=== PATIENT | female | born 1975 | race Caucasian/White ===

== ENCOUNTER 2020-06-09 09:08 | Outpatient (CLI) | payer OTHER, SELFPAY ==
--- NOTE | ~2020-06-09 | US_ITS ---
EXAMINATION: US abdomen complete DATE: 06/09/2020 10:16 INDICATION: Pancytopenia TECHNIQUE: Multiple grayscale and Doppler ultrasound images of the abdomen were obtained. COMPARISON: None available FINDINGS: The head and and body of the pancreas are normal. The pancreatic tail is obscured by bowel gas. The liver is normal with normal echogenicity and echotexture. No surface nodularity. Normal hepa topetal flow in the main portal vein. A stone is present in the nondistended gallbladder. There is no gallbladder wall thickening or pericholecystic fluid. The normal common bile duct measures 4 mm. The re was no sonographic Sood sign. The visualized portions of the aorta and inferior vena cava are no rmal. The right kidney measures 10.7 x 4.6 x 4.2 cm. The left kidney measures 10.4 x 4.5 x 5.3 cm. The kidn eys demonstrate normal parenchymal echogenicity. There is no hydronephrosis. The spleen is normal in appearance and measures 10.5 cm. IMPRESSION: 1. No sonographic correlate for the patient's symptoms. Reviewed, dictated and finalized at location A.
[2020-06-09 10:40] LABS: Basophils Percent Auto 1.3 % (0.2-1.2); Eosinophils Percent Auto 0.3 % (0-4.4); Hematocrit 32.2 % (37.0-47.0); Hemoglobin 10.4 g/dL (12.0-15.0); Immature Granulocyte Absolute 0.02 K/mm3 (0.00-0.031); Immature Granulocyte Percent A 0.7 % (0-0.5); Immature Platelet Fraction Pct 22.2 % (0.9-11.2); Lymphocytes Absolute Auto 1.05 K/mm3 (0.9-3.2); Mean Corpuscular HGB Conc 32.3 g/dl (32-36); Mean Corpuscular Hemoglobin 33.2 pg (26-34); Mean Corpuscular Volume 102.9 fl (80-100); Monocytes Absolute Auto 0.3 K/mm3 (0.1-0.6); Monocytes Percent Auto 10.7 % (2.6-8.5); Neutrophils Absolute Auto 1.6 K/mm3 (1.3-6.7); Platelet Count Result 155 k/mm3 (150-375); Red Blood Count 3.13 M/mm3 (4.2-5.4); Red Cell Distribution Width 15.9 % (11.5-14.5)
[2020-06-09 10:42] LABS: Immature Reticulocyte Fraction 30.4 % (3.0-15.9); Reticulocyte Hemoglobin Conten 38.7 pg (28.2-35.7); Reticulocyte Percent 3.89 % (0.7-4.3); Reticulocytes Absolute 0.12 B/L (32.2-175.7)
[2020-06-09 12:39] LABS: Iron 112 ug/dL (37-170)
[2020-06-09 12:41] LABS: Alanine Aminotransferase 15 U/L (4-35); Alkaline Phosphatase 61 U/L (38-126); Anion Gap 8 mmol/L (8-16); Aspartate Amino Transferase 20 U/L (14-36); Bilirubin,Total 0.2 mg/dL (0.2-1.3); Blood Urea Nitrogen 12 mg/dL (7-17); Calcium 8.7 mg/dL (8.4-10.2); Carbon Dioxide 23 mmol/L (22-30); Chloride 106 mmol/L (98-107); Estimated Glomerular Filt Rate > 60; Glucose 99 mg/dL (65-105); Lactate Dehydrogenase 501 U/L (313-618); Potassium 4.3 mmol/L (3.4-5.0); Sodium 137 mmol/L (137-145)
[2020-06-09 12:50] LABS: Percent Iron Saturation 36 % (20-50)
[2020-06-09 13:46] LABS: Folic Acid 12.1 ng/mL (2.76->20)
== END 2020-06-09 09:09 | disposition home or self-care (01) ==
PROVIDERS: PCP Family Medicine; Visit Provider Internal Medicine Hematology & Oncology
DX: D61.818 Other pancytopenia (principal)
CPT/HCPCS: 36415; 76700; 80053; 82607; 82728; 82746; 83540; 83550; 83615; 84443; 85025; 85046; 85055; 86038

== ENCOUNTER 2020-06-21 00:45 | Outpatient (CLI) | payer OTHER, SELFPAY ==
[2020-06-21 16:40] LABS: SARS-CoV-2 RNA PCR Negative
== END 2020-06-21 00:46 | disposition home or self-care (01) ==
LOC: ANHCOVIDDT 00:45
PROVIDERS: PCP Family Medicine; Visit Provider Internal Medicine Hematology & Oncology
DX: Z01.812 Encounter for preprocedural laboratory examination (principal); Z11.59 Encounter for screening for other viral diseases
CPT/HCPCS: 87635; C9803; U0003

== ENCOUNTER 2020-06-23 03:12 | Day surgery (SDC) | payer OTHER, SELFPAY ==
[2020-06-22 11:35] VITALS: BP 120/86; PULSE 67; RESP 16; TEMP 36.6; O2SAT 99
[2020-06-22 11:58] VITALS: BMI 35.5
--- NOTE | ~2020-06-23 | BM_ITS ---
. EXAMINATION: CCL bone marrow asp w bx diag ORDER COMPLETED DATE: 06/23/2020 11:30 INDICATION: Pancytopenia TECHNIQUE: A time-out was performed to verify the patient's name, date of , and procedure to b e performed. The procedure including the risks, benefits, and alternatives was discussed with the pat ient. Risks discussed included bleeding and infection. The patient understood the risks and agreed to proceed. The skin overlying the right posterior iliac spine was prepped and draped in usual sterile fashion. Anesthetic was administered with 1% lidocaine subcutaneously. Systemic analgesia was provide d with 75 mcg fentanyl IV. An 11 gauge needle was inserted into the ilium with fluoroscopic guidance. Bone marrow was aspirated. An 8 gauge needle was then inserted into the ilium with fluoroscopic guid ance. A core bone marrow biopsy was obtained. There were no immediate complications. Fluoroscopy expo sure time was 0.1 minutes. The total number of images was 99. FINDINGS: Real-time fluoroscopy demonstrates a marker overlying the right posterior iliac spine. IMPRESSION: 1. Successful fluoro-guided bone marrow aspiration. 2. Successful fluoro-guided bone marrow core biopsy. Reviewed, dictated and finalized at location A.
[2020-06-23 09:50] LABS: Basophils Percent Auto 0.7 % (0.2-1.2); Eosinophils Percent Auto 0.3 % (0-4.4); Hematocrit 31.9 % (37.0-47.0); Hemoglobin 10.6 g/dL (12.0-15.0); Immature Granulocyte Absolute 0.01 K/mm3 (0.00-0.031); Immature Granulocyte Percent A 0.3 % (0-0.5); Immature Platelet Fraction Pct 23.4 % (0.9-11.2); Lymphocytes Absolute Auto 1.17 K/mm3 (0.9-3.2); Lymphocytes Percent Auto 40.2 % (18.3-44.2); Mean Corpuscular HGB Conc 33.2 g/dl (32-36); Mean Corpuscular Hemoglobin 34.4 pg (26-34); Mean Corpuscular Volume 103.6 fl (80-100); Monocytes Absolute Auto 0.4 K/mm3 (0.1-0.6); Monocytes Percent Auto 12.7 % (2.6-8.5); Neutrophils Absolute Auto 1.3 K/mm3 (1.3-6.7); Neutrophils Percent Auto 45.8 % (45.5-73.1); Nucleated Red Blood Cells Perc 1.4 % (0.0-0.2); Platelet Count Result 113 k/mm3 (150-375); Red Blood Count 3.08 M/mm3 (4.2-5.4); Red Cell Distribution Width 15.8 % (11.5-14.5); White Blood Count 2.9 K/mm3 (4.5-10.0)
[2020-06-23 09:58] VITALS: BP 132/82; PULSE 77; RESP 14; TEMP 36.8; O2SAT 100
[2020-06-23 10:00] LABS: Prothrombin Time 13.3 Seconds (11.1-14.7)
[2020-06-23 10:31] LABS: SPREG INTERNAL CONTROL Positive; Serum Qual hCG Negative
--- NOTE | 2020-06-23 11:34 | SUR.PHASEII ---
RETURNS TO POULTRY CULLER 5 S/P BM BX W/ ASPIRATION ON STRETCHER. AWAKE AND ALERT ON ARRIVAL. DENIES PAIN. VSS. DRESSING TO R. POSTERIOR HIP C/D/I. SITE SOFT, NONTENDER, NO BLEEDING. LYING FLAT ON STRETCHER. AT BEDSIDE. REVIEWED WOUND CARE INSTRUCTIONS W/ BOTH PT AND . WILL CONTINUE TO MONITOR.
[2020-06-23 11:50] VITALS: BP 116/72; PULSE 68; RESP 16; O2SAT 100
[2020-06-23 12:05] VITALS: BP 109/65; PULSE 67; RESP 16; O2SAT 100
--- NOTE | 2020-06-23 12:20 | SUR.PHASEII ---
DISCHARGED HOME, OUT VIA WC W/ ALL PERSONAL BELONGINGS AND DISCHARGE PACKET/INSTRUCTIONS TO 'S WAITING CAR. DENIES PAIN. R. POSTERIOR HIP BX SITE DRESSING C/D/I. SITE WITHOUT TENDERNESS OR BLEEDING. VOICES NO C/O.
--- NOTE | 2020-06-23 13:00 | SUR.PHASEII ---
IN ERROR, SOME FLOWSHEET DOCUMENTATION WAS CHARTED IN 06/22/2020 COLUMN INSTEAD OF 06/23/2020 COLUMN BY THIS RN, NOMI RIDER. ALL INFORMATION DOCUMENTED BY THIS RN TOOK PLACE TODAY, 06/23/2020. THE TIME OF DOCUMENTATION IS ACCURATE FOR ALL COLUMNS, JUST ALL TOOK PLACE ON 06/23/20, NOT 06/22/20.
== END 2020-06-23 12:20 | disposition home or self-care (01) ==
PROVIDERS: PCP Family Medicine; Referring Provider Internal Medicine Hematology & Oncology; Visit Provider Radiology Diagnostic Radiology
DX: M89.9 Disorder of bone, unspecified (principal)
CPT/HCPCS: 36415; 38222; 84703; 85025; 85055; 85610; 87635; 88184; 88185; 88305; 88311; 88313; 88342; 88360; C9803; J2250; J3010; J7040; U0003

== ENCOUNTER → 2022-12-14 13:42 | Outpatient (CLI) | payer OTHER, SELFPAY ==
--- NOTE | ~2022-12-14 | CT_ITS ---
EXAMINATION:CT chest high resolution wo me DATE: 12/14/2022 14:05 INDICATION: Interstitial lung disease. TECHNIQUE: Computed tomography (CT) of the chest was performed without intravenous contrast. Automate d exposure control and iterative reconstruction technique were employed. The dose-length product (DLP ) was 285.95 mGy-cm. COMPARISON: None. FINDINGS: There is widespread septal thickening in the lungs with a peripheral predominance that is o ut of proportion to the degree of associated groundglass opacities. There is peripheral honeycombing in the lower lobes and left upper lobe. There is mild bronchiectasis in the lingula and left lower lo be. No pleural effusion. The heart size is normal. No pericardial effusion. There is mild mediastinal lymphadenopathy, likely reactive. There is mild thoracic spondylosis. IMPRESSION: 1. Chronic interstitial lung disease in a pattern of usual interstitial pneumonia (UIP). Reviewed, dictated and finalized at location A. LEWORKER IMPRESSION: 1. Chronic interstitial lung disease in a pattern of usual interstitial pneumon ia (UIP).
== END ==
DX: J84.9 Interstitial pulmonary disease, unspecified (principal)
CPT/HCPCS: 71250